=== PATIENT | female | born 1980 | race Caucasian/White ===

== ENCOUNTER → 2018-10-21 | Outpatient (CLI) | payer BC ==
[2018-10-21 18:41] LABS: BASOPHILS ABSOLUTE AUTO 0.03 K/mm3 (0.00-0.23); BASOPHILS PERCENT AUTO 0 % (0-2); EOSINOPHILS ABSOLUTE AUTO 0.17 K/mm3 (0.00-0.68); EOSINOPHILS PERCENT AUTO 2 % (0-6); Hematocrit 46.6 % (33.0-51.0); Hemoglobin 15.3 g/dL (11.5-16.0); IMMATURE GRAN ABSOLUTE AUTO 0.02 K/mm3 (0.00-0.10); IMMATURE GRAN PERCENT AUTO 0 % (0-1); LYMPHOCYTES ABSOLUTE AUTO 2.32 K/mm3 (0.84-5.20); LYMPHOCYTES PERCENT AUTO 29 % (21-46); MONOCYTES PERCENT AUTO 6 % (4-13); Mean Corpuscular HGB 31.5 pg (26.0-34.0); Mean Corpuscular HGB Conc 32.8 g/dL (31.5-36.5); Mean Corpuscular Volume 96 fL (80-100); Mean Platelet Volume 12.3 fL (9.1-12.4); NEUTROPHILS ABSOLUTE AUTO 4.95 K/mm3 (1.96-9.15); NEUTROPHILS PERCENT AUTO 62 % (41-73); Platelet Count 238 K/mm3 (150-400); RDW Coefficient Variation 11.9 % (11.7-14.2); Red Blood Cell Count 4.86 M/mm3 (3.80-5.20); White Blood Cell Count 7.99 K/mm3 (4.00-11.30)
[2018-10-21 18:59] LABS: Alanine Aminotransfer (ALT/SGP 28 U/L (12-78); Albumin, Blood 4.3 g/dL (3.4-5.0); Albumin/Globulin Ratio 1.2 (0.8-1.8); Alk Phos 65 U/L (50-136); Anion Gap 6 mmol/L (6-16); Aspartate Aminotrans (AST/SGOT 17 U/L (12-37); Bilirubin, Total 0.4 mg/dL (0.1-1.0); Blood Urea Nitrogen 12 mg/dL (8-24); Bun/Creatinine Ratio 15.7 (12.0-20.0); CO2, Blood 26 mmol/L (21-32); Calcium, Blood 9.5 mg/dL (8.5-10.1); Chloride, Blood 105 mmol/L (98-108); Creatinine, Blood 0.76 mg/dL (0.40-1.00); Globulin, Blood 3.7 g/dL (2.2-4.0); Glomerular Filtration Rate >60 (60-); Glucose, Blood 85 mg/dL (70-99); Potassium, Blood 4.5 mmol/L (3.5-5.5); Sodium, Blood 137 mmol/L (136-145)
== END ==
LOC: LAB 18:14 → LAB SHORT 18:14
PROVIDERS: Family Medicine
DX: M25.532 Pain in left wrist (principal); M25.40 Effusion, unspecified joint; M25.50 Pain in unspecified joint
CPT/HCPCS: 80053; 85025; 85651

== ENCOUNTER 2020-11-01 09:13 | Day surgery (SDC) | payer BC ==
[2020-10-29 15:20] LABS: BASOPHILS ABSOLUTE AUTO 0.04 K/mm3 (0.00-0.23); BASOPHILS PERCENT AUTO 1 % (0-2); EOSINOPHILS PERCENT AUTO 2 % (0-6); Hematocrit 45.6 % (33.0-51.0); Hemoglobin 15.2 g/dL (11.5-16.0); IMMATURE GRAN ABSOLUTE AUTO 0.01 K/mm3 (0.00-0.10); IMMATURE GRAN PERCENT AUTO 0 % (0-1); LYMPHOCYTES ABSOLUTE AUTO 1.84 K/mm3 (0.84-5.20); LYMPHOCYTES PERCENT AUTO 28 % (21-46); MONOCYTES ABSOLUTE AUTO 0.43 K/mm3 (0.16-1.47); MONOCYTES PERCENT AUTO 7 % (4-13); Mean Corpuscular HGB 31.3 pg (26.0-34.0); Mean Corpuscular HGB Conc 33.3 g/dL (31.5-36.5); Mean Corpuscular Volume 94 fL (80-100); Mean Platelet Volume 11.3 fL (9.1-12.4); NEUTROPHILS ABSOLUTE AUTO 4.17 K/mm3 (1.96-9.15); NEUTROPHILS PERCENT AUTO 63 % (41-73); Platelet Count 249 K/mm3 (150-400); RDW Coefficient Variation 11.8 % (11.7-14.2); RDW Standard Deviation 40.8 fL (35.1-46.3); Red Blood Cell Count 4.85 M/mm3 (3.80-5.20); White Blood Cell Count 6.59 K/mm3 (4.00-11.30)
[2020-10-29 17:31] LABS: Anion Gap 7 mmol/L (6-16); Beta HCG, Quantitative, Serum <1 mIU/mL (0-3); Blood Urea Nitrogen 12 mg/dL (8-24); Bun/Creatinine Ratio 15.8 (12.0-20.0); CO2, Blood 23 mmol/L (21-32); Calcium, Blood 8.6 mg/dL (8.5-10.1); Chloride, Blood 106 mmol/L (98-108); Creatinine, Blood 0.76 mg/dL (0.40-1.00); Glomerular Filtration Rate >60 (60-); Glucose, Blood 115 mg/dL (70-99); Potassium, Blood 3.5 mmol/L (3.5-5.5); Sodium, Blood 136 mmol/L (136-145)
[~2020-11-01] VITALS: Ht 167.6 cm; Wt 63.0 kg
[~2020-11-01 09:13] MED LIST: METR500 PO; MULVITA PO; VITAMIN D310 MC4 PO; ZOLP5 PO
--- NOTE | 2020-11-01 09:45 | NUR ---
History, Chart, Medications and Allergies reviewed before start of procedure. Patient confirms NPO status and agrees with scheduled surgery. Pre-Op teaching done. Pt verbalizes understanding. Patient reports completing Chlorhexadine shower X2 prior to admission to hospital.
--- NOTE | 2020-11-01 15:16 | NUR ---
11/01/20 1516 Christa Chung ALL COUNTS CORRECT.
--- NOTE | 2020-11-01 17:24 | NUR ---
SUMMARY PT ARRIVED TO UNIT FROM PACU THIS AFTERNOON. DENIED PAIN BUT DID REPORT EXTREME DISCOMFORT FROM NUNO CATH. DENIED N/V OR SOB. LAP INCISIONS X4 TO ABD CDI. SMALL AMOUNT OF VAGINAL BLEEDING NOTED. VSS. PROVIDED CLEAR LIQUIDS FOR PATIENT. PRODUCTION GRADER DC'ING NUNO PER RN INSTRUCTIONS R/T ORDERS. PT GETTING UP TO ATTEMPT BM. SPOUSE AT BEDSIDE.
--- NOTE | 2020-11-01 20:00 | NUR ---
BLEEDING: PT UP TO BATHROOM, NILS PAD SATURATED. PT PASSED 2 LARGE CLOTS APX 4CM. PT REP INC ABD CRAMPING. ABD SOFT, NON TENDER TO PALP, PT DENIES DIZZINESS, VSS. NEW NILS PAD PLACED. CALL PLACED TO DR CHARLES FOR UPDATE. AWAITING CALL BACK.
--- NOTE | 2020-11-01 20:31 | NUR ---
PT BLEEDING, CRAMPING AND VITALS REV W/DR WONDERLY. NO NEW ORDERS. WILL CONT TO MONITOR AND NOTIFY FOR FURTHER CONCERNS.
--- NOTE | 2020-11-01 23:11 | NUR ---
PT OOB WALKING IN THE HALLWAY.
--- NOTE | 2020-11-02 00:47 | NUR ---
VAGINAL BLEEDING APPEARS TO HAVE SLOWED DOWN. NILS PAD W/MOD AMT BLOODY DRNG, NO CLOTS NOTED.
--- NOTE | 2020-11-02 02:23 | NUR ---
PT UP OOB WALKING DOWN THE HALLWAYS WITH IV PUMP. NO ASSISTANCE NEEDED.
[2020-11-02 04:40] LABS: BASOPHILS ABSOLUTE AUTO 0.06 K/mm3 (0.00-0.23); BASOPHILS PERCENT AUTO 0 % (0-2); EOSINOPHILS PERCENT AUTO 0 % (0-6); Hematocrit 38.3 % (33.0-51.0); IMMATURE GRAN ABSOLUTE AUTO 0.05 K/mm3 (0.00-0.10); IMMATURE GRAN PERCENT AUTO 0 % (0-1); LYMPHOCYTES ABSOLUTE AUTO 1.09 K/mm3 (0.84-5.20); LYMPHOCYTES PERCENT AUTO 7 % (21-46); MONOCYTES ABSOLUTE AUTO 0.89 K/mm3 (0.16-1.47); MONOCYTES PERCENT AUTO 6 % (4-13); Mean Corpuscular HGB 31.7 pg (26.0-34.0); Mean Corpuscular HGB Conc 33.9 g/dL (31.5-36.5); Mean Corpuscular Volume 93 fL (80-100); Mean Platelet Volume 11.6 fL (9.1-12.4); NEUTROPHILS ABSOLUTE AUTO 12.67 K/mm3 (1.96-9.15); NEUTROPHILS PERCENT AUTO 86 % (41-73); Platelet Count 211 K/mm3 (150-400); RDW Coefficient Variation 11.9 % (11.7-14.2); RDW Standard Deviation 41.1 fL (35.1-46.3); White Blood Cell Count 14.76 K/mm3 (4.00-11.30)
--- NOTE | 2020-11-02 07:29 | NUR ---
POD 1 S/P LAP ROBOTIC HYSTER. PT VSS T/O NIGHT. INCISIONS CDI. PT CHANGED NILS PAD X3 THIS SHIFT, BLEEDING MINIMAL THIS AM, NO ADDITIONAL CLOTS. PT VOIDING URINE W/O DIFFICULTY. PT RACHID REG PO, NO N/V, NO FLATUS YET. IV S/L THIS AM. PAIN MGD W/TORADOL AND 2 PERCOCET W/REP RELIEF. PT AMB FREQ IN HALLS, RACHID WELL. PLAN TO D/C HOME TODAY. BEDSIDE REP GIVEN TO MAUDE Reardon RN.
[2020-11-02] MEDS ORDERED: DOCU100 PO (10:32)
[2020-11-02] MEDS ORDERED: DULCOLAX400 MG/5 M PO ×2 (10:33→12:52)
[2020-11-02] MEDS ORDERED: IBUP400 PO (12:45)
[2020-11-02] MEDS ORDERED: Percocet 5-3251 EACH PO (12:47)
[2020-11-02] MEDS ORDERED: PROM25 PO (12:49)
[2020-11-02] MEDS ORDERED: SENN187 PO (12:50)
[2020-11-02] MEDS ORDERED: SIME80CH PO (12:51)
--- NOTE | 2020-11-02 13:54 | NUR ---
DISCHARGE: PACKET PRINTED AND PT EDUCATED. MEDS FAXED AND PT GIVEN SCRIPT. PT LEFT UNIT VIA WHEELCHAIR AT ABOUT 1315
== END 2020-11-02 13:20 | disposition home or self-care (01) ==
LOC: ORSCMMR 09:13 → ORD 10:45 → ORSCMMR 10:45 → SURS 16:00 → ORSCMMR 11-02 13:20
PROVIDERS: Obstetrics & Gynecology
PROC: 0UT74ZZ Resection of Bilateral Fallopian Tubes, Percutaneous Endoscopic Approach (ICD-10-PCS; principal; 2020-11-01 11:00)
PROC: 0UT94ZZ Resection of Uterus, Percutaneous Endoscopic Approach (ICD-10-PCS; principal; 2020-11-01 11:00)
PROC: 8E0W4CZ Robotic Assisted Procedure of Trunk Region, Percutaneous Endoscopic Approach (ICD-10-PCS; principal; 2020-11-01 11:00)
DX: N92.0 Excessive and frequent menstruation with regular cycle (principal); N94.6 Dysmenorrhea, unspecified; D25.9 Leiomyoma of uterus, unspecified; N80.3 Endometriosis of pelvic peritoneum
CPT/HCPCS: 58571; S2900; 36415; 80048; 84702; 85025; 86850; 86900; 86901; 88307; A9270; A9270-GY; J0690; J1100; J1885; J2250; J2405; J2704; J3010; J7120

== ENCOUNTER 2020-11-18 19:16 | Emergency (ER) | payer BC ==
[~2020-11-18] VITALS: Ht 167.6 cm; Wt 64.4 kg
[~2020-11-18 19:16] MED LIST changes: +DOCU100 PO; +DULCOLAX400 MG/5 M PO; +IBUP400 PO; +PROM25 PO; +Percocet 5-3251 EACH PO; +SENN187 PO; +SIME80CH PO
[2020-11-18 19:48] LABS: BASOPHILS ABSOLUTE AUTO 0.07 K/mm3 (0.00-0.23); BASOPHILS PERCENT AUTO 1 % (0-2); EOSINOPHILS PERCENT AUTO 5 % (0-6); Hematocrit 36.6 % (33.0-51.0); Hemoglobin 12.4 g/dL (11.5-16.0); IMMATURE GRAN ABSOLUTE AUTO 0.02 K/mm3 (0.00-0.10); IMMATURE GRAN PERCENT AUTO 0 % (0-1); LYMPHOCYTES PERCENT AUTO 12 % (21-46); MONOCYTES ABSOLUTE AUTO 0.61 K/mm3 (0.16-1.47); MONOCYTES PERCENT AUTO 7 % (4-13); Mean Corpuscular HGB 31.6 pg (26.0-34.0); Mean Corpuscular HGB Conc 33.9 g/dL (31.5-36.5); Mean Corpuscular Volume 93 fL (80-100); Mean Platelet Volume 10.9 fL (9.1-12.4); NEUTROPHILS ABSOLUTE AUTO 6.52 K/mm3 (1.96-9.15); NEUTROPHILS PERCENT AUTO 76 % (41-73); Platelet Count 301 K/mm3 (150-400); RDW Coefficient Variation 11.3 % (11.7-14.2); RDW Standard Deviation 38.5 fL (35.1-46.3); Red Blood Cell Count 3.93 M/mm3 (3.80-5.20); White Blood Cell Count 8.62 K/mm3 (4.00-11.30)
[2020-11-18 20:27] LABS: Alanine Aminotransfer (ALT/SGP 36 U/L (12-78); Albumin, Blood 3.1 g/dL (3.4-5.0); Albumin/Globulin Ratio 0.8 (0.8-1.8); Alk Phos 80 U/L (50-136); Anion Gap 7 mmol/L (6-16); Aspartate Aminotrans (AST/SGOT 18 U/L (12-37); Bilirubin, Total 0.2 mg/dL (0.1-1.0); Blood Urea Nitrogen 10 mg/dL (8-24); Bun/Creatinine Ratio 14.7 (12.0-20.0); CO2, Blood 24 mmol/L (21-32); Calcium, Blood 8.7 mg/dL (8.5-10.1); Chloride, Blood 107 mmol/L (98-108); Creatinine, Blood 0.68 mg/dL (0.40-1.00); Glomerular Filtration Rate >60 (60-); Glucose, Blood 99 mg/dL (70-99); Potassium, Blood 3.6 mmol/L (3.5-5.5); Sodium, Blood 138 mmol/L (136-145); Total Protein, Blood 7.1 g/dL (6.4-8.2)
[2020-11-18 21:40] LABS: Source, Urine Clean Catch
[2020-11-18 21:43] LABS: Bilirubin, Urine Neg (Neg); Blood, Urine 1+ (Neg); Glucose Qualitative, Urine Neg (Neg); Ketones, Urine Neg (Neg); Leukocyte Esterase, Urine 1+ (Neg); Nitrite, Urine Neg (Neg); Protein, Urine Neg (Neg); Specific Gravity, Urine 1.005 (1.003-1.022); Urobilinogen, Urine NORM (Normal)
[2020-11-18 21:46] LABS: Appearance, Urine Clear (Clear); Color, Urine Pale Yellow (P-Yellow)
[2020-11-18] MEDS ORDERED: AMOCLA875 PO (21:59)
[2020-11-18] MEDS ORDERED: Norco 5-325 Ta1 EACH PO (21:59)
[2020-11-18] MEDS ORDERED: ONDA4ODT MM (21:59)
[2020-11-18 22:01] LABS: Bacteria Rare /hpf; Red Blood Cells, Urine Rare /hpf (0-2); Squamous Epithelial Cells Few /hpf (Few); White Blood Cells, Urine Rare /hpf (0-5)
== END 2020-11-18 22:15 | disposition home or self-care (01) ==
LOC: ER 19:16
PROVIDERS: Emergency Medicine
DX: R10.9 Unspecified abdominal pain (principal); R50.9 Fever, unspecified; Z79.899 Other long term (current) drug therapy; Z87.891 Personal history of nicotine dependence
CPT/HCPCS: 36415; 74176; 80053; 81001; 83690; 85025; 96374; 96375; 99284-25; A9270; J1170; J2405; J7030

== ENCOUNTER 2021-06-05 11:27 | Emergency (ER) | payer BC ==
[~2021-06-05] VITALS: Ht 162.6 cm; Wt 64.0 kg
[~2021-06-05 11:27] MED LIST changes: +AMOCLA875 PO; +Norco 5-325 Ta1 EACH PO; +ONDA4ODT MM
[2021-06-05 12:19] LABS: BASOPHILS ABSOLUTE AUTO 0.03 K/mm3 (0.00-0.23); BASOPHILS PERCENT AUTO 0 % (0-2); EOSINOPHILS ABSOLUTE AUTO 0.08 K/mm3 (0.00-0.68); EOSINOPHILS PERCENT AUTO 1 % (0-6); Hematocrit 46.1 % (33.0-51.0); Hemoglobin 15.3 g/dL (11.5-16.0); IMMATURE GRAN ABSOLUTE AUTO 0.02 K/mm3 (0.00-0.10); IMMATURE GRAN PERCENT AUTO 0 % (0-1); LYMPHOCYTES ABSOLUTE AUTO 2.03 K/mm3 (0.84-5.20); LYMPHOCYTES PERCENT AUTO 26 % (21-46); MONOCYTES ABSOLUTE AUTO 0.46 K/mm3 (0.16-1.47); MONOCYTES PERCENT AUTO 6 % (4-13); Mean Corpuscular HGB 31.4 pg (26.0-34.0); Mean Corpuscular HGB Conc 33.2 g/dL (31.5-36.5); Mean Corpuscular Volume 95 fL (80-100); Mean Platelet Volume 11.3 fL (9.1-12.4); NEUTROPHILS ABSOLUTE AUTO 5.17 K/mm3 (1.96-9.15); NEUTROPHILS PERCENT AUTO 66 % (41-73); Platelet Count 244 K/mm3 (150-400); RDW Coefficient Variation 11.9 % (11.7-14.2); RDW Standard Deviation 41.4 fL (35.1-46.3); Red Blood Cell Count 4.88 M/mm3 (3.80-5.20); White Blood Cell Count 7.79 K/mm3 (4.00-11.30)
[2021-06-05 12:33] LABS: Alanine Aminotransfer (ALT/SGP 27 U/L (12-78); Albumin, Blood 3.7 g/dL (3.4-5.0); Albumin/Globulin Ratio 0.9 (0.8-1.8); Alk Phos 72 U/L (50-136); Anion Gap 6 mmol/L (6-16); Aspartate Aminotrans (AST/SGOT 23 U/L (12-37); Bilirubin, Total 0.4 mg/dL (0.1-1.0); Blood Urea Nitrogen 14 mg/dL (8-24); Bun/Creatinine Ratio 19.4 (12.0-20.0); CO2, Blood 24 mmol/L (21-32); Calcium, Blood 9.5 mg/dL (8.5-10.1); Chloride, Blood 107 mmol/L (98-108); Creatinine, Blood 0.72 mg/dL (0.40-1.00); Glomerular Filtration Rate >60 (60-); Glucose, Blood 97 mg/dL (70-99); Potassium, Blood 4.1 mmol/L (3.5-5.5); Sodium, Blood 137 mmol/L (136-145); Total Protein, Blood 7.7 g/dL (6.4-8.2)
[2021-06-05] MEDS ORDERED: Armour Thyroid15 MG PO (13:33)
== END 2021-06-05 15:54 | disposition home or self-care (01) ==
LOC: ER 11:27
PROVIDERS: Physician Assistant
DX: G43.909 Migraine, unspecified, not intractable, without status migrainosus (principal); E03.9 Hypothyroidism, unspecified; Z87.891 Personal history of nicotine dependence
CPT/HCPCS: 36415; 70450; 80053; 85025; 85651; 86140; 93005; 93010; J0780; J1100; J1200; J1885; J7030

== ENCOUNTER 2023-06-25 13:52 | Day surgery (SDC) | payer BC ==
[~2023-06-25] VITALS: Ht 165.1 cm; Wt 69.4 kg
[~2023-06-25 13:52] MED LIST changes: +Armour Thyroid15 MG PO
[2023-06-25] MEDS ORDERED: IBUP200 PO (14:38)
--- NOTE | 2023-06-25 15:16 | NUR ---
06/25/23 1516 Lynn Carlson ISOVUE USED BY DR MEYER TO VERIFY PLACEMENT FOR EPIDURAL INJECTION.
[2023-06-25 15:25] VITALS: BP 123/70
== END 2023-06-25 15:30 | disposition home or self-care (01) ==
LOC: ORSCSDS 13:52
PROVIDERS: Anesthesiology
PROC: 3E0R3BZ Introduction of Anesthetic Agent into Spinal Canal, Percutaneous Approach (ICD-10-PCS; principal; 2023-06-25 15:00)
PROC: 3E0R33Z Introduction of Anti-inflammatory into Spinal Canal, Percutaneous Approach (ICD-10-PCS; principal; 2023-06-25 15:00)
DX: M51.16 Intervertebral disc disorders with radiculopathy, lumbar region (principal)
CPT/HCPCS: J1040

== ENCOUNTER 2024-03-04 09:19 | Day surgery (SDC) | payer BC ==
[~2024-03-04] VITALS: Ht 167.6 cm; Wt 68.0 kg
[~2024-03-04 09:19] MED LIST changes: +CeFAZolin Sodium 2,000 MG VIAL ONE; +IBUP200 PO; +NS 50 ML IV ONE; +Ropivacaine 0.5% HCL/PF 5 MG/ML 30ML Vial ONE
[2024-03-04] MEDS ORDERED: propofoL 20 ML IV ONE (09:41)
[2024-03-04] MEDS ORDERED: PROGESTERONE 100 MG (10:02)
[2024-03-04] MEDS ORDERED: Lactated Ringer's 1,000 ML IV ONE (10:15)
[2024-03-04] MEDS ORDERED: FentaNYL Citrate 50 MCG/ML 2 ML Injection ONE ×3 (10:22→13:05)
[2024-03-04] MEDS ORDERED: EPINEPhrine HCl 1 MG/ML 1ML Amp XX ONE (10:37)
--- NOTE | 2024-03-04 10:44 | NUR ---
03/04/[address] NOTED PRE-EXISTING BRUISE IN [place] LOCATION. ROPIVACAINE 0.5% 30 ML MIXED & VERIFIED W/ EPI 0.15ML (1MG/ML) TO MAKE ROPIVACAINE 0.5% 1:200,000 FOR INJECTION AT [facility].
[2024-03-04] MEDS ORDERED: Ondansetron HCl 2 MG / ML 2ML Vial ONE (10:53)
[2024-03-04] MEDS ORDERED: Metoclopramide HCl 5MG / ML 2ML Vial ONE (10:53)
[2024-03-04] MEDS ORDERED: Dexamethasone Sod Phos 10 MG/ML 1ML VIAL ONE (10:53)
--- NOTE | 2024-03-04 12:14 | NUR ---
03/04/24 1214 Shirin Russell PT TOLERATING SNACKS AND FLUIDS. PT STATED THAT HER PAIN IS AT A 6/10. THIS RN RECEIVED REPORT FROM ZANDER [place]. PT'S AT BEDSIDE. PT DENIED ANY NAUSEA. PT ABLE TO MAKE NEEDS KNOWN. PT PLEASANT AND COOPERATIVE WITH CARE. PT'S R FOOT ELEVATED WITH A PILLOW. WARM BLANKETS GIVEN TO PT. WCTM.
[2024-03-04] MEDS ORDERED: HYDROcodone 5-APAP 325 TAB ONE (12:23)
[2024-03-04 13:14] VITALS: BP 120/63
[2024-03-04] MEDS ORDERED: Atropine Sulfate 0.4 MG/1 ML Vial ONE (13:14)
== END 2024-03-04 13:26 | disposition home or self-care (01) ==
LOC: ORSCSDS 09:19
PROVIDERS: Podiatrist Foot & Ankle Surgery
PROC: 0SGH04Z Fusion of Right Tarsal Joint with Internal Fixation Device, Open Approach (ICD-10-PCS; principal; 2024-03-04 10:30)
PROC: 0QSN04Z Reposition Right Metatarsal with Internal Fixation Device, Open Approach (ICD-10-PCS; principal; 2024-03-04 10:30)
DX: M21.611 Bunion of right foot (principal)
CPT/HCPCS: A9270; C1713; J0171; J0461; J0690; J1100; J2405; J2704; J2765; J2795; J3010